=== PATIENT | female | born 1995 | race Caucasian/White ===

== ENCOUNTER 2017-07-28 11:07 | Observation (INO) ==
--- NOTE | 2017-07-28 11:23 | Emergency Department Note ---
Disposition Clinical Impression: Tremulousness, Lethargic Headache Qualifiers: Headache type: unspecified Headache chronicity pattern: acute headache Intractability: not intractable Qualified Code(s): R51 - Headache Disposition: Admitted As Inpatient Condition: Good Referrals: Nery Floyd MD [Primary Care Provider] - Forms: ED Satisfaction Letter Time of Disposition: 16:50 Seizure HPI - General Chief Complaint: ED Seizure Stated Complaint: seizure Source: patient, family, EMS Mode of arrival: EMS Limitations: no limitations, other (developmental disability) Nursing Notes Reviewed: Yes Vital Signs Reviewed: Yes - History of Present Illness HPI Narrative: This is a 21 year-old female with history of developmental disability, childhood epilepsy ("benign occipital epilepsy") who presents with possible seizures. History is provided mainly by her mother. Patient has been having episodes of eyes "fluttering" and occasional bilateral arm "twitching" since Thursday night. Episodes last a few minutes at a time, and there have been about 6 episodes since onset. There is no LOC, but patient has been unusually sleepy. She slept most of the day yesterday. She complains of a diffuse headache. Mom says that patient has frequent headaches. Mom thinks that patient may be having seizures again. Last known seizure was about 10 years ago. No recent head trauma. No measured fevers. Patient had her Zoloft dose increased 4 days ago. Pt Subjective Complaint: possible seizure Onset (ago): day(s) (2) Description of Episode: other (eyes "flickering") -: minutes(s) (few) Witnessed: yes - by other (family) Associated trauma secondary to event: No Seizure History: known seizure disorder (remote) Place: home Associated symptoms: Reports: weakness (generalized) Pain Severity: moderate - Related Data Allergies Allergy/AdvReac Type Severity Reaction Status Date / Time Penicillins Allergy Rash Verified 07/28/17 12:48 Limitations: ROS unobtainable due to patients medical condition (history of developmental disability, lethargy) Neurological: Reports: headache Past Medical History - Past Medical History Medical history: Reports: seizures Psychiatric history: Reports: no psych history - Social History Smoking Status: Former smoker Smokeless Tobacco Status: No Alcohol use: Reports: none Drug use: Reports: none Physical Exam - General Limitations: no limitations General appearance: lethargic - Head Head exam: atraumatic, normocephalic - Eye Eye exam: Present: normal appearance, PERRL, EOMI. Absent: nystagmus - ENT ENT exam: normal exam, mucous membranes moist - Neck Neck exam: Present: normal inspection. Absent: meningismus - Respiratory Respiratory exam: Present: normal lung sounds bilaterally. Absent: wheezes - Cardiovascular Cardiovascular exam: Present: regular rate, normal rhythm, normal heart sounds - Abdominal Exam Abdominal exam: Present: soft, Non-Tender. Absent: distention - Extremities Exam Extremities exam: Present: normal inspection. Absent: calf tenderness - Neurological Exam Neurological exam: Present: alert, oriented X3, CN II-XII intact. Absent: motor sensory deficit - Psychiatric Psychiatric exam: Present: flat affect - Skin Skin exam: Present: warm, dry, intact Course - Reevaluation(s) Reevaluation #1: Updated patient's family on test results. Patient resting comfortably. Occasional "twitching" movements of the hands. Time: 16:30 - Consultations Consultation #1: Paged Neuro. Time: 16:25 Consultation #2: Reviewed case with Dr. Randall. He suggests we admit patient for obs. Give IVF, repeat UA, get EEG in the AM. Time: 16:48 Consultation #3: Reviewed case with Dr. Matias, and patient accepted for admit. Time: 17:10 Vital Signs Temperature 99.2 F 07/28/17 11:08 Pulse Rate 76 07/28/17 11:08 Respiratory Rate 16 07/28/17 11:08 Blood Pressure 132/96 07/28/17 11:08 O2 Sat by Pulse Oximetry 97 07/28/17 11:08 Temperature 99.2 F 07/28/17 11:08 Pulse Rate 65 07/28/17 16:25 Respiratory Rate 16 07/28/17 16:25 Blood Pressure 120/84 07/28/17 16:25 O2 Sat by Pulse Oximetry 98 07/28/17 16:25 Oxygen Delivery Oxygen Delivery Room Air Seizure - Lab Data Result diagrams: 07/28/17 12:03 07/28/17 12:03 Lab Results 07/28/17 07/28/17 07/28/17 Range/Units 12:03 12:03 12:03 WBC 12.1 H (4.3-11.1) K/mcL RBC 4.80 (3.82-4.97) M/mcL Hgb 13.0 (11.5-15.4) g/dL Hct 40.5 (35.3-44.9) % MCV 84.4 (83.0-100.0) fL MCH 27.1 L (28.0-33.3) pg MCHC 32.1 (31.6-35.5) g/dL RDW 15.0 H (11.5-14.5) % Plt Count 412 H (140-400) K/mcL MPV 10.7 (9.4-12.4) fL Immature Gran % 0.3 (0-4) % Seg Neutrophils % 72.6 % Lymphocytes % 22.3 % Monocytes % 3.7 % Eosinophils % 0.7 % Basophils % 0.4 % Neutrophils # 8.8 (1.6-8.9) K/mcL Lymphocytes # 2.7 (0.6-4.6) K/mcL Monocytes # 0.5 (0.0-1.3) K/mcL Eosinophils # 0.1 (0.0-0.6) K/mcL Basophils # 0.1 (0.0-0.2) K/mcL Sodium 138 (136-145) mEq/L Potassium 3.8 (3.5-5.1) mEq/L Chloride 105 (98-107) mEq/L Carbon Dioxide 25 (23-29) mEq/L BUN 13 (6-20) mg/dL Creatinine 0.83 (0.60-1.20) mg/dL Est GFR ( Amer) > 60 Est GFR (Non-Af Amer) > 60 BUN/Creatinine Ratio 16 (6-26) Glucose 84 (70-105) mg/dL Calculated Osmolality 285 (280-300) Calcium 9.4 (8.6-10.3) mg/dL Phosphorus 3.1 (2.7-4.5) mg/dL Magnesium 2.0 (1.6-2.6) mg/dL Total Bilirubin 0.3 (0.3-1.0) mg/dL AST 15 (13-39) Units/L ALT 11 (7-52) Units/L Alkaline Phosphatase 84 (34-104) Units/L Serum Total Protein 7.9 (6.4-8.9) g/dL Albumin 4.3 (3.5-5.7) g/dL Globulin 3.6 H (2.4-3.5) g/dL Albumin/Globulin Ratio 1.2 (1.1-2.2) Serum , Qual Negative (Negative) Urine Color (Yellow) Urine Clarity (Clear) Urine pH (5.0-8.0) pH Units Ur Specific [place] (1.010-1.025) Urine Protein (Neg-Trace) mg/dL Urine Glucose (UA) (Normal) mg/dL Urine Ketones (Negative) mg/dL Urine Blood (Negative) Urine Nitrite (Negative) Urine Bilirubin (Negative) Urine Urobilinogen (Normal) mg/dL Ur Leukocyte Esterase (Negative) Urine Microscopic RBC (0-3) per hpf Urine Microscopic WBC (0-3) per hpf Ur Squamous Epith Cells (None-Few) per lpf Urine Bacteria (None-Few) per hpf Hyaline Casts (None-Few) per lpf CSF Volume mL CSF Appearance (Clear) CSF Color (Colorless) CSF RBC (0.000 - 0.002) M/mcL CSF Tot Nucleated Cells (0-5) TNC/mcL CSF Seg Neutrophils CSF Band Neutrophils % CSF Lymphocytes % CSF Monocytes % CSF Eosinophils % CSF Basophils % CSF Other Cells % CSF Glucose (40-70) mg/dL CSF Xanth Comm (Not Observe) CSF Total Protein (15-45) mg/dL Urine Opiates Screen (Jdfytd=327) ng/mL Ur Barbiturates Screen (Ovtvve=817) ng/mL Ur Phencyclidine Scrn (Cutoff=25) ng/mL Ur Amphetamines Screen (Eldkkq=2241) ng/mL U Benzodiazepines Scrn (Vrydvz=440) ng/mL Urine Cocaine Screen (Cutoff= 300) ng/mL U Marijuana (THC) Screen (Cutoff = 50) ng/mL 07/28/17 07/28/17 07/28/17 Range/Units 13:42 13:42 15:00 WBC (4.3-11.1) K/mcL RBC (3.82-4.97) M/mcL Hgb (11.5-15.4) g/dL Hct (35.3-44.9) % MCV (83.0-100.0) fL MCH (28.0-33.3) pg MCHC (31.6-35.5) g/dL RDW (11.5-14.5) % Plt Count (140-400) K/mcL MPV (9.4-12.4) fL Immature Gran % (0-4) % Seg Neutrophils % % Lymphocytes % % Monocytes % % Eosinophils % % Basophils % % Neutrophils # (1.6-8.9) K/mcL Lymphocytes # (0.6-4.6) K/mcL Monocytes # (0.0-1.3) K/mcL Eosinophils # (0.0-0.6) K/mcL Basophils # (0.0-0.2) K/mcL Sodium (136-145) mEq/L Potassium (3.5-5.1) mEq/L Chloride (98-107) mEq/L Carbon Dioxide (23-29) mEq/L BUN (6-20) mg/dL Creatinine (0.60-1.20) mg/dL Est GFR ( Amer) Est GFR (Non-Af Amer) BUN/Creatinine Ratio (6-26) Glucose (70-105) mg/dL Calculated Osmolality (280-300) Calcium (8.6-10.3) mg/dL Phosphorus (2.7-4.5) mg/dL Magnesium (1.6-2.6) mg/dL Total Bilirubin (0.3-1.0) mg/dL AST (13-39) Units/L ALT (7-52) Units/L Alkaline Phosphatase (34-104) Units/L Serum Total Protein (6.4-8.9) g/dL Albumin (3.5-5.7) g/dL Globulin (2.4-3.5) g/dL Albumin/Globulin Ratio (1.1-2.2) Serum , Qual (Negative) Urine Color Yellow (Yellow) Urine Clarity Cloudy A (Clear) Urine pH 5.5 (5.0-8.0) pH Units Ur Specific [place] 1.027 H (1.010-1.025) Urine Protein Negative (Neg-Trace) mg/dL Urine Glucose (UA) Normal (Normal) mg/dL Urine Ketones Negative (Negative) mg/dL Urine Blood Negative (Negative) Urine Nitrite Negative (Negative) Urine Bilirubin Negative (Negative) Urine Urobilinogen Normal (Normal) mg/dL Ur Leukocyte Esterase Trace H (Negative) Urine Microscopic RBC 3-5 H (0-3) per hpf Urine Microscopic WBC 5-15 H (0-3) per hpf Ur Squamous Epith Cells Many H (None-Few) per lpf Urine Bacteria Few (None-Few) per hpf Hyaline Casts None Seen (None-Few) per lpf CSF Volume 3.5 mL CSF Appearance Clear (Clear) CSF Color Colorless (Colorless) CSF RBC < 0.002 (0.000 - 0.002) M/mcL CSF Tot Nucleated Cells < 3 (0-5) TNC/mcL CSF Seg Neutrophils Test Not Performed CSF Band Neutrophils % Test Not Performed CSF Lymphocytes % Test Not Performed CSF Monocytes % Test Not Performed CSF Eosinophils % Test Not Performed CSF Basophils % Test Not Performed CSF Other Cells % Test Not Performed CSF Glucose 61 (40-70) mg/dL CSF Xanth Comm Not Observed (Not Observe) CSF Total Protein 27 (15-45) mg/dL Urine Opiates Screen Negative (Cbrdif=318) ng/mL Ur Barbiturates Screen Negative (Wpmecy=893) ng/mL Ur Phencyclidine Scrn Negative (Cutoff=25) ng/mL Ur Amphetamines Screen Negative (Ufaazr=2569) ng/mL U Benzodiazepines Scrn Negative (Ggecwp=019) ng/mL Urine Cocaine Screen Negative (Cutoff= 300) ng/mL U Marijuana (THC) Screen Negative (Cutoff = 50) ng/mL - Radiology Data Radiology results reviewed: Yes I reviewed the patient's radiology results. CT/CT head/brain wo con IMPRESSION: No acute intracranial abnormality. - EKG Data EKG attestation: Yes I reviewed and interpreted this EKG. EKG shows normal: sinus rhythm, axis, intervals, QRS complexes, ST-T waves Interpretation: normal EKG
[2017-07-28] MEDS ORDERED: *HR* LORazepam 2 MG/ML VIAL IVP ONE (12:43)
[2017-07-28 13:16] LABS: Basophils # 0.1 K/mcL (0.0-0.2); Basophils % 0.4 %; Eosinophils # 0.1 K/mcL (0.0-0.6); Eosinophils % 0.7 %; Hematocrit 40.5 % (35.3-44.9); Immature Granulocytes % 0.3 % (0-4); Lymphocytes # 2.7 K/mcL (0.6-4.6); Lymphocytes % 22.3 %; Mean Corpuscular HGB Conc 32.1 g/dL (31.6-35.5); Mean Corpuscular Hemoglobin 27.1 pg (28.0-33.3); Mean Corpuscular Volume 84.4 fL (83.0-100.0); Mean Platelet Volume 10.7 fL (9.4-12.4); Monocytes # 0.5 K/mcL (0.0-1.3); Monocytes % 3.7 %; Neutrophils # 8.8 K/mcL (1.6-8.9); Platelet Count 412 K/mcL (140-400); Segmented Neutrophils % 72.6 %
[2017-07-28 13:39] LABS: Alanine Aminotransferase 11 Units/L (7-52); Albumin 4.3 g/dL (3.5-5.7); Albumin/Globulin Ratio 1.2 (1.1-2.2); Alkaline Phosphatase 84 Units/L (34-104); Aspartate Amino Transferase 15 Units/L (13-39); BUN/Creatinine Ratio 16 (6-26); Bilirubin,Total 0.3 mg/dL (0.3-1.0); Blood Urea Nitrogen 13 mg/dL (6-20); Calcium 9.4 mg/dL (8.6-10.3); Carbon Dioxide 25 mEq/L (23-29); Chloride 105 mEq/L (98-107); Globulin 3.6 g/dL (2.4-3.5); Glucose 84 mg/dL (70-105); Osmolality,Calculated 285 (280-300); Phosphorous 3.1 mg/dL (2.7-4.5); Potassium 3.8 mEq/L (3.5-5.1); Sodium 138 mEq/L (136-145); Total Protein 7.9 g/dL (6.4-8.9); eGFR For African Americans > 60; eGFR For Non-African Americans > 60
[2017-07-28] MEDS ORDERED: cefTRIAXone 2,000 MG in 0.9 % Sodium Chloride Mini Bag 100 ML IVPB ONE (13:59)
[2017-07-28] MEDS ORDERED: *HR* FentaNYL (PF) 100 MCG/2 ML VIAL IVP ONE (14:11)
[2017-07-28 14:12] LABS: Bilirubin,Urine Negative (Negative); Blood,Urine Negative (Negative); Clarity,Urine Cloudy (Clear); Color,Urine Yellow (Yellow); Glucose,Urine (UA) Normal (Normal); Ketones,Urine Negative (Negative); Leukocyte Esterase,Urine Trace (Negative); Nitrite,Urine Negative (Negative); PH,Urine 5.5 pH Units (5.0-8.0); Protein,Urine Negative (Neg-Trace); Specific Gravity,Urine 1.027 (1.010-1.025); Urobilinogen,Urine Normal (Normal)
[2017-07-28 14:16] LABS: Bacteria,Urine Few per hpf (None-Few); Hyaline Casts,Urine None Seen per lpf (None-Few); Squamous Epithelial Cell,Urine Many per lpf (None-Few)
[2017-07-28] MEDS ORDERED: Lidocaine 1% 20 ML MDV INFILT ONE (14:30)
[2017-07-28 14:32] LABS: Amphetamine Screen,Urine Negative ng/mL (Cutoff=1000); Barbiturate Screen,Urine Negative ng/mL (Cutoff=200); Benzodiazepines Screen,Urine Negative ng/mL (Cutoff=200); Cannabinoid Screen,Urine Negative ng/mL (Cutoff = 50); Cocaine Screen,Urine Negative ng/mL (Cutoff= 300); Opiate Screen,Urine Negative ng/mL (Cutoff=300); Phencyclidine Screen,Urine Negative ng/mL (Cutoff=25)
[2017-07-28 15:52] LABS: Red Blood Cell,CSF < 0.002 M/mcL
[2017-07-28 15:54] LABS: Appearance,CSF Clear (Clear)
--- NOTE | 2017-07-28 16:03 | Emergency Department Note ---
Disposition Clinical Impression: Generalized seizure Headache Qualifiers: Headache type: unspecified Headache chronicity pattern: acute headache Intractability: not intractable Qualified Code(s): R51 - Headache Disposition: Still a Patient Condition: Undetermined Referrals: Nery Floyd MD [Primary Care Provider] - Forms: ED Satisfaction Letter Time of Disposition: 16:04 Seizure HPI - General Chief Complaint: ED Seizure Stated Complaint: seizure Time Seen by Provider: 07/28/17 15:09 Source: patient, family, EMS Mode of arrival: EMS Limitations: no limitations Nursing Notes Reviewed: Yes Vital Signs Reviewed: Yes - History of Present Illness Associated trauma secondary to event: No Seizure History: known seizure disorder (remote) Place: home Associated symptoms: Reports: weakness (generalized) - Related Data Allergies Allergy/AdvReac Type Severity Reaction Status Date / Time Penicillins Allergy Rash Verified 07/28/17 12:48 Neurological: Reports: headache Past Medical History - Past Medical History Medical history: Reports: seizures Psychiatric history: Reports: no psych history - Social History Smoking Status: Former smoker Smokeless Tobacco Status: No Alcohol use: Reports: none Drug use: Reports: none Physical Exam - General Limitations: no limitations General appearance: lethargic Course Vital Signs Temperature 99.2 F 07/28/17 11:08 Pulse Rate 76 07/28/17 11:08 Respiratory Rate 16 07/28/17 11:08 Blood Pressure 132/96 07/28/17 11:08 O2 Sat by Pulse Oximetry 97 07/28/17 11:08 Temperature 99.2 F 07/28/17 11:08 Pulse Rate 72 07/28/17 15:14 Respiratory Rate 16 07/28/17 15:14 Blood Pressure 125/81 07/28/17 15:14 O2 Sat by Pulse Oximetry 95 07/28/17 15:14 Oxygen Delivery Oxygen Delivery Room Air Procedures - Lumbar Puncture Consent Obtained: written consent Time Out Performed: Yes Patient Position: right lateral decubitus Skin Prep: Povidone-Iodine 1% Local Anesthetic: lidocaine 1% Amount of anesthesia used (mL): 10 Spinal Needle Gauge: 20G Interspace Used: L3-L4 Opening Pressure (cmH20): 4 Fluid Initially Obtained: bloody Complications: none Seizure - Lab Data Result diagrams: 07/28/17 12:03 07/28/17 12:03 Lab Results 07/28/17 07/28/17 07/28/17 Range/Units 12:03 12:03 12:03 WBC 12.1 H (4.3-11.1) K/mcL RBC 4.80 (3.82-4.97) M/mcL Hgb 13.0 (11.5-15.4) g/dL Hct 40.5 (35.3-44.9) % MCV 84.4 (83.0-100.0) fL MCH 27.1 L (28.0-33.3) pg MCHC 32.1 (31.6-35.5) g/dL RDW 15.0 H (11.5-14.5) % Plt Count 412 H (140-400) K/mcL MPV 10.7 (9.4-12.4) fL Immature Gran % 0.3 (0-4) % Seg Neutrophils % 72.6 % Lymphocytes % 22.3 % Monocytes % 3.7 % Eosinophils % 0.7 % Basophils % 0.4 % Neutrophils # 8.8 (1.6-8.9) K/mcL Lymphocytes # 2.7 (0.6-4.6) K/mcL Monocytes # 0.5 (0.0-1.3) K/mcL Eosinophils # 0.1 (0.0-0.6) K/mcL Basophils # 0.1 (0.0-0.2) K/mcL Sodium 138 (136-145) mEq/L Potassium 3.8 (3.5-5.1) mEq/L Chloride 105 (98-107) mEq/L Carbon Dioxide 25 (23-29) mEq/L BUN 13 (6-20) mg/dL Creatinine 0.83 (0.60-1.20) mg/dL Est GFR ( Amer) > 60 Est GFR (Non-Af Amer) > 60 BUN/Creatinine Ratio 16 (6-26) Glucose 84 (70-105) mg/dL Calculated Osmolality 285 (280-300) Calcium 9.4 (8.6-10.3) mg/dL Phosphorus 3.1 (2.7-4.5) mg/dL Magnesium 2.0 (1.6-2.6) mg/dL Total Bilirubin 0.3 (0.3-1.0) mg/dL AST 15 (13-39) Units/L ALT 11 (7-52) Units/L Alkaline Phosphatase 84 (34-104) Units/L Serum Total Protein 7.9 (6.4-8.9) g/dL Albumin 4.3 (3.5-5.7) g/dL Globulin 3.6 H (2.4-3.5) g/dL Albumin/Globulin Ratio 1.2 (1.1-2.2) Serum , Qual Negative (Negative) Urine Color (Yellow) Urine Clarity (Clear) Urine pH (5.0-8.0) pH Units Ur Specific [place] (1.010-1.025) Urine Protein (Neg-Trace) mg/dL Urine Glucose (UA) (Normal) mg/dL Urine Ketones (Negative) mg/dL Urine Blood (Negative) Urine Nitrite (Negative) Urine Bilirubin (Negative) Urine Urobilinogen (Normal) mg/dL Ur Leukocyte Esterase (Negative) Urine Microscopic RBC (0-3) per hpf Urine Microscopic WBC (0-3) per hpf Ur Squamous Epith Cells (None-Few) per lpf Urine Bacteria (None-Few) per hpf Hyaline Casts (None-Few) per lpf CSF Volume mL CSF Appearance (Clear) CSF Color (Colorless) CSF RBC (0.000 - 0.002) M/mcL CSF Tot Nucleated Cells (0-5) TNC/mcL CSF Seg Neutrophils CSF Band Neutrophils % CSF Lymphocytes % CSF Monocytes % CSF Eosinophils % CSF Basophils % CSF Other Cells % Urine Opiates Screen (Wzznis=697) ng/mL Ur Barbiturates Screen (Xebbdc=792) ng/mL Ur Phencyclidine Scrn (Cutoff=25) ng/mL Ur Amphetamines Screen (Ulftqa=2907) ng/mL U Benzodiazepines Scrn (Cxtkqx=450) ng/mL Urine Cocaine Screen (Cutoff= 300) ng/mL U Marijuana (THC) Screen (Cutoff = 50) ng/mL 07/28/17 07/28/17 07/28/17 Range/Units 13:42 13:42 15:00 WBC (4.3-11.1) K/mcL RBC (3.82-4.97) M/mcL Hgb (11.5-15.4) g/dL Hct (35.3-44.9) % MCV (83.0-100.0) fL MCH (28.0-33.3) pg MCHC (31.6-35.5) g/dL RDW (11.5-14.5) % Plt Count (140-400) K/mcL MPV (9.4-12.4) fL Immature Gran % (0-4) % Seg Neutrophils % % Lymphocytes % % Monocytes % % Eosinophils % % Basophils % % Neutrophils # (1.6-8.9) K/mcL Lymphocytes # (0.6-4.6) K/mcL Monocytes # (0.0-1.3) K/mcL Eosinophils # (0.0-0.6) K/mcL Basophils # (0.0-0.2) K/mcL Sodium (136-145) mEq/L Potassium (3.5-5.1) mEq/L Chloride (98-107) mEq/L Carbon Dioxide (23-29) mEq/L BUN (6-20) mg/dL Creatinine (0.60-1.20) mg/dL Est GFR ( Amer) Est GFR (Non-Af Amer) BUN/Creatinine Ratio (6-26) Glucose (70-105) mg/dL Calculated Osmolality (280-300) Calcium (8.6-10.3) mg/dL Phosphorus (2.7-4.5) mg/dL Magnesium (1.6-2.6) mg/dL Total Bilirubin (0.3-1.0) mg/dL AST (13-39) Units/L ALT (7-52) Units/L Alkaline Phosphatase (34-104) Units/L Serum Total Protein (6.4-8.9) g/dL Albumin (3.5-5.7) g/dL Globulin (2.4-3.5) g/dL Albumin/Globulin Ratio (1.1-2.2) Serum , Qual (Negative) Urine Color Yellow (Yellow) Urine Clarity Cloudy A (Clear) Urine pH 5.5 (5.0-8.0) pH Units Ur Specific [place] 1.027 H (1.010-1.025) Urine Protein Negative (Neg-Trace) mg/dL Urine Glucose (UA) Normal (Normal) mg/dL Urine Ketones Negative (Negative) mg/dL Urine Blood Negative (Negative) Urine Nitrite Negative (Negative) Urine Bilirubin Negative (Negative) Urine Urobilinogen Normal (Normal) mg/dL Ur Leukocyte Esterase Trace H (Negative) Urine Microscopic RBC 3-5 H (0-3) per hpf Urine Microscopic WBC 5-15 H (0-3) per hpf Ur Squamous Epith Cells Many H (None-Few) per lpf Urine Bacteria Few (None-Few) per hpf Hyaline Casts None Seen (None-Few) per lpf CSF Volume 3.5 mL CSF Appearance Clear (Clear) CSF Color Colorless (Colorless) CSF RBC < 0.002 (0.000 - 0.002) M/mcL CSF Tot Nucleated Cells < 3 (0-5) TNC/mcL CSF Seg Neutrophils Test Not Performed CSF Band Neutrophils % Test Not Performed CSF Lymphocytes % Test Not Performed CSF Monocytes % Test Not Performed CSF Eosinophils % Test Not Performed CSF Basophils % Test Not Performed CSF Other Cells % Test Not Performed Urine Opiates Screen Negative (Nmtlqs=642) ng/mL Ur Barbiturates Screen Negative (Hocwps=206) ng/mL Ur Phencyclidine Scrn Negative (Cutoff=25) ng/mL Ur Amphetamines Screen Negative (Lkallf=9780) ng/mL U Benzodiazepines Scrn Negative (Nqlalk=860) ng/mL Urine Cocaine Screen Negative (Cutoff= 300) ng/mL U Marijuana (THC) Screen Negative (Cutoff = 50) ng/mL
[2017-07-28 16:23] LABS: Glucose,CSF 61 mg/dL (40-70); Total Protein,CSF 27 mg/dL (15-45)
[2017-07-28] MEDS ORDERED: 0.9 % Sodium Chloride 1,000 ML IVC ONE (16:30)
[2017-07-28] MEDS ORDERED: *HR* LORazepam 0.5 MG TABLET PO PRN (19:35)
[2017-07-28] MEDS ORDERED: traMADol 50 MG TABLET PO PRN (19:37)
[2017-07-28] MEDS ORDERED: Naloxone 0.4 MG/ML INJ IVP PRN (19:37)
[2017-07-28] MEDS ORDERED: 0.9 % Sodium Chloride 1,000 ML IVC SCH (19:45)
--- NOTE | 2017-07-28 19:46 | Internal Med History&Physical ---
Date of Encounter: 07/28/17 Time of Encounter: 19:41 Internal Medicine - H&P: HPI Chief complaint: Seizures Admitted From: Emergency Dept History of present illness: Ms. Reza is a 21 year old female with a past medical history of seizure disorder during her childhood more than 10 years ago, not on any seizure medication, also history of developmental disability, recently her dose of Zoloft which was prescribed for her mood disorder was increased from 100 mg daily to 200 mg daily 4 days ago. Since Thursday, her mother has noticed her eyes fluttering, both arms twitching, these episodes last for about 30 seconds or less, after does episodes the patient becomes very sleepy but never lost consciousness. She did not develop and headaches on and off. Lumbar puncture performed at the emergency room shows 3 nuclear cells glucose of 61 and protein of 27/oh normal. The patient is high functioning, denies any dysuria or chest pain, UA shows 15 white blood cells but many squamous cells. Neurology was called and will recommend possibly in the morning and EEG. Past Med Surg Social Fam HX - Past Medical History Medical history: seizures, other (Benign occipital epilepsy in childhood more than 10 years ago, developmental disability MRDD high functioning, mood disorder on Zoloft) Psychiatric history: other (Mood disorder) - Past Surgical History Surgical History: no surgical history - Social History Smoking Status: Never smoker Smokeless Tobacco Status: No Alcohol use: none Drug use: none - Family History Mother Adopted: Yes - Additional Family History Additional family history: The patient was adopted Internal Medicine - H&P: Meds Sertraline [Zoloft] 200 mg PO HS 07/28/17 [History] 3 Allergy/AdvReac Type Severity Reaction Status Date / Time Penicillins Allergy Rash Verified 07/28/17 12:48 All Systems PM: A 10-system review of systems was performed and is negative for pertinent findings except as documented above in the HPI. Review of systems: No chest pressures or breath, other systems out of the 10 reviewed were negative - Constitutional Vitals: Temp Pulse Resp BP Pulse Ox 99.1 F 64 15 111/76 100 07/28/17 18:54 07/28/17 18:54 07/28/17 18:54 07/28/17 18:54 07/28/17 18:54 General appearance: Present: A&O X 3, obese - Head Head exam: Present: atraumatic, normocephalic - Eye Eye exam: Present: PERRL, conjuntiva pink, sclera anicteric Pupils: Present: PERRL - Neck Neck exam general surgery: Present: supple, trachea midline. Absent: lymphadenopathy - Respiratory Respiratory exam: Present: CTAB. Absent: accessory muscle use, rales, rhonchi, wheezes - Cardiovascular Cardiovascular exam: Present: RRR, +S1, +S2. Absent: diastolic murmur, gallop, rubs, systolic murmur - GI/Abdominal GI/Abdominal exam: Present: normal bowel sounds, soft, no peritoneal signs. Absent: distended, tenderness - Extremities Exam Extremities exam: Present: warm, radial pulses palpable and symmetrical. Absent : calf tenderness, cyanotic, pedal edema - Neurological Exam Neurological exam: Present: CN II-XII intact, oriented X3, no focal deficits. Absent: pronater drift, facial droop, speech deficit - Skin Skin exam: Present: dry, intact Internal Med - H&P Results - Labs CBC & Chem 7: 07/28/17 12:03 07/28/17 12:03 - Assessment and plan (1) Seizure-like activity Current Visit: Yes Status: Acute Assessment and plan: Unclear etiology, since her dose of Zoloft was increased to 200 mg, the patient has become more somnolent. Zoloft is associated with seizures in less than 2% of the people treated. Neurology consulted by the ER Neuro checks, seizure and aspiration precautions Ativan as needed Hold Zoloft Received Rocephin and vancomycin in the ER which will not be continued Omeprazole for GI prophylaxis and subcutaneous tenderness heparin for DVT prophylaxis. The patient will be admitted for observation. Full code. Time spent on this admission 40 minutes. (2) Developmental disability Current Visit: Yes Status: Acute (3) Mood disorder Current Visit: Yes Status: Acute (4) Thrombocytosis Current Visit: Yes Status: Acute Assessment and plan: Nonspecific (5) Leukocytosis Current Visit: Yes Status: Acute Assessment and plan: Nonspecific Qualifiers: Leukocytosis type: unspecified Qualified Code(s): D72.829 - Elevated white blood cell count, unspecified - Time Spent With Patient Total time spent is greater than 50% in coordination of care (as documented) at patient's floor/unit and/or counseling patient:
[2017-07-29 04:52] LABS: Hematocrit 34.6 % (35.3-44.9); Mean Corpuscular HGB Conc 31.2 g/dL (31.6-35.5); Mean Corpuscular Hemoglobin 25.9 pg (28.0-33.3); Mean Platelet Volume 10.8 fL (9.4-12.4); Platelet Count 341 K/mcL (140-400); Red Blood Count 4.17 M/mcL (3.82-4.97); Red Cell Distribution Width 15.1 % (11.5-14.5)
[2017-07-29 04:54] LABS: Hemoglobin 10.8 g/dL (11.5-15.4)
[2017-07-29 05:08] LABS: BUN/Creatinine Ratio 16 (6-26); Blood Urea Nitrogen 12 mg/dL (6-20); Calcium 8.7 mg/dL (8.6-10.3); Carbon Dioxide 22 mEq/L (23-29); Chloride 109 mEq/L (98-107); Glucose 113 mg/dL (70-105); Osmolality,Calculated 289 (280-300); Potassium 3.5 mEq/L (3.5-5.1); Sodium 139 mEq/L (136-145); eGFR For African Americans > 60; eGFR For Non-African Americans > 60
[2017-07-29] MEDS: *HR* Heparin 5,000 UNIT/ML VIAL SQ SCH ×2 (06:05→17:29)
[2017-07-29] MEDS ORDERED: *HR* LORazepam 2 MG/ML VIAL IVP ONE (08:46)
[2017-07-29] MEDS ORDERED: *HR* LORazepam 2 MG/ML VIAL ONE (08:47)
--- NOTE | 2017-07-29 09:34 | Neurology - Consult Note ---
<JamisonEvelinaVadim - Last Filed: 07/29/17 09:31> Date of Encounter: 07/29/17 Time of Encounter: 08:15 Assessment and Plan (1) Seizure-like activity Current Visit: Yes Status: Acute Patient with history of childhood seizure activity, who has not been on anti- epileptics. Possibly medication-related, as she takes a recently increased dose of Zoloft, or simply behavioral. Continue holding Zoloft. Further evaluation with the EEG and MRI is recommended, especially with history of worsening headaches. Recommend Topamax 50 mg PO BID for headache prophylaxis. Will follow the patient with you and give further recommendations pending completed testing. 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 Episodes, of which there have been about 6 , appear as fluttering of the eyes and bilateral arm twitching. There is a loss of consciousness associated with them, and the patient has been somnolent since the episode started. The patient reports that it is been about 10 years since her last seizure and that she has never been on medication. Patient does report frequent headaches. She denies weakness or numbness. CT of the head was negative. Past Med Surg Social Fam HX - Past Medical History Medical history: seizures, other (Benign occipital epilepsy in childhood more than 10 years ago, developmental disability MRDD high functioning, mood disorder on Zoloft) Additional medical history: high functioning MRDD Psychiatric history: other (Mood disorder) - Past Surgical History Surgical History: no surgical history - Social History Smoking Status: Never smoker Smokeless Tobacco Status: No Alcohol use: none Drug use: none - Family History Mother Adopted: Yes Medications and Allergies Sertraline [Zoloft] 200 mg PO HS 07/28/17 [History] 3 Allergy/AdvReac Type Severity Reaction Status Date / Time Penicillins Allergy Rash Verified 07/28/17 12:48 All Systems: The remainder of the systems were reviewed and are negative Review of Systems: A 10-point review of systems was completed and was negative except as noted in the HPI. Physical Examination - Vital Signs Vital Signs: Initial Vital Signs Temp Pulse Resp BP Pulse Ox 99.2 F 76 16 132/96 97 07/28/17 11:08 05/29/18 11:08 07/28/17 11:08 07/28/17 11:08 07/28/17 11:08 - Exam Exam: CONSTITUTIONAL: Well-developed and well-nourished. Comfortable and in no acute distress. CARDIOVASCULAR: Regular rate and rhythm. +S1 and S2. CHEST: Normal work of breathing. NEURO: Mental Status: Alert and oriented x3. Follows commands and answers questions. Cranial Nerves: PERRL. EOMI. Visual isaac intact. Symmetrical facial strength. Facial sensation intact. No dysarthria. Hearing intact. Soft palate elevates symmetrically. SCM and trapezius without weakness. Tongue protrudes in midline. Motor: Left - 5/5 in upper and lower extremities. Right - 5/5 in upper and lower extremities. Sensation intact. Cerebellar function intact to [id number]. Results - Laboratory Findings CBC and BMP: 07/29/17 08:29 07/29/17 04:30 Abnormal lab findings: Abnormal lab results Hct 34.6 % (35.3-44.9) L 07/29/17 04:30 MCH 25.9 pg (28.0-33.3) L 07/29/17 04:30 MCHC 31.2 g/dL (31.6-35.5) L 07/29/17 04:30 RDW 15.1 % (11.5-14.5) H 07/29/17 04:30 Chloride 109 mEq/L (98-107) H 07/29/17 04:30 Carbon Dioxide 22 mEq/L (23-29) L 07/29/17 04:30 Glucose 113 mg/dL (70-105) H 07/29/17 04:30 Globulin 3.6 g/dL (2.4-3.5) H 07/28/17 12:03 Urine Clarity Cloudy (Clear) A 07/28/17 13:42 Ur Specific [place] 1.027 (1.010-1.025) H 07/28/17 13:42 Ur Leukocyte Esterase Trace (Negative) H 07/28/17 13:42 Urine Microscopic RBC 3-5 per hpf (0-3) H 07/28/17 13:42 Urine Microscopic WBC 5-15 per hpf (0-3) H 07/28/17 13:42 Ur Squamous Epith Cells Many per lpf (None-Few) H 07/28/17 13:42 - Diagnostic Findings Additional findings: Head CT 07/28/17 12:30 IMPRESSION: No acute intracranial abnormality. D/ / Julián Calderon MD / Julián Calderon MD Interpreting Provider: Julián Calderon MD Consult Discharge Plan - Plan Referrals: Nery Floyd MD [Primary Care Provider] - <Adebayo Randall I - Last Filed: 07/29/17 14:01> Date of Encounter: 07/29/17 Assessment and Plan (1) Seizure-like activity Current Visit: Yes Status: Acute Pt was seen and examined, my medical decision was reviewed with the Resident Physician, I agree with the documented findings, disposition and treatment plas as described except to the extent set forth below It is a concern that symptoms are more off seizure type of activity but there is no associated loss of consciousness one of the spell world witnessed by the floor nurse practitioner who mentioned that there is no loss of consciousness when her eyes were twitching up in the head. With her history of for seizures but no seizures for more than 10 years and without any obvious provoking factors seems to be less likely that these are epileptic as spells that that remains a possibility. Sounds more like a behavioral events than true epileptic seizures but again cannot completely exclude that possibility. We will suggest getting her long ambulatory 48 hours EEG that could be done as an outpatient after neurology office visit. As she is also complaining of some headaches quite frequent 1 suggest start on the Topamax for headache prevention. Follow-up in neurology clinic after discharge in 3-4 weeks Adebayo Randall MD History of Present Illness HPI: Ms. Reza is a 21 year old female All Systems: The remainder of the systems were reviewed and are negative Physical Examination - Vital Signs Vital Signs: Initial Vital Signs Temp Pulse Resp BP Pulse Ox 99.2 F 76 16 132/96 97 07/28/17 11:08 07/28/17 11:08 07/28/17 11:08 07/28/17 11:08 07/28/17 11:08 Results - Laboratory Findings CBC and BMP: 07/29/17 08:29 07/29/17 04:30 Abnormal lab findings: Abnormal lab results Hct 34.6 % (35.3-44.9) L 07/29/17 04:30 MCH 25.9 pg (28.0-33.3) L 07/29/17 04:30 MCHC 31.2 g/dL (31.6-35.5) L 07/29/17 04:30 RDW 15.1 % (11.5-14.5) H 07/29/17 04:30 Chloride 109 mEq/L (98-107) H 07/29/17 04:30 Carbon Dioxide 22 mEq/L (23-29) L 07/29/17 04:30 Glucose 113 mg/dL (70-105) H 07/29/17 04:30 Globulin 3.6 g/dL (2.4-3.5) H 07/28/17 12:03 Urine Clarity Cloudy (Clear) A 07/28/17 13:42 Ur Specific [place] 1.027 (1.010-1.025) H 07/28/17 13:42 Ur Leukocyte Esterase Trace (Negative) H 07/28/17 13:42 Urine Microscopic RBC 3-5 per hpf (0-3) H 07/28/17 13:42 Urine Microscopic WBC 5-15 per hpf (0-3) H 07/28/17 13:42 Ur Squamous Epith Cells Many per lpf (None-Few) H 07/28/17 13:42
--- NOTE | 2017-07-29 11:11 | Electrocardiograph Report ---
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
--- NOTE | 2017-07-29 12:19 | Discharge Summary ---
Orders not resulted at time of discharge: Pending orders 07/29/17 08:15 Occult Blood,Stool [BF] Stat Date of Encounter: 07/29/17 Time of Encounter: 12:14 - Discharge Diagnosis (1) Seizure-like activity Status: Acute Assessment and Plan: Unclear etiology, since her dose of Zoloft was increased to 200 mg, the patient has become more somnolent. Zoloft is associated with seizures in less than 2% of the people treated. Neurology consulted by the ER Neuro checks, seizure and aspiration precautions Ativan as needed Hold Zolofdain Received Rocephin and vancomycin in the ER which will not be continued Omeprazole for GI prophylaxis and subcutaneous tenderness heparin for DVT prophylaxis. The patient will be admitted for observation. Full code. Time spent on this admission 40 minutes. (2) Developmental disability Status: Acute Assessment and Plan: per hx. High functioning. Mentation at baseline. (3) Thrombocytosis Status: Acute Assessment and Plan: Nonspecific (4) Leukocytosis Status: Acute Assessment and Plan: Nonspecific Qualifiers: Leukocytosis type: unspecified Qualified Code(s): D72.829 - Elevated white blood cell count, unspecified Hospital course: Ms. Reza is a 21 year old female - Time Spent with Patient Total time spent providing and/or coordinating discharge services: - Discharge Medications Home Medications: Sertraline [Zoloft] 200 mg PO HS 07/28/17 [History] Allergies/Adverse Reactions: 3 Allergy/AdvReac Type Severity Reaction Status Date / Time Penicillins Allergy Rash Verified 07/28/17 12:48 Date of admission: 07/28/17 17:37 Primary care physician: Nery Floyd, Consults: 07/28/17 19:49 Consult to Neurology [CONS] Routine Consulting Provider: [facility] Reason for Consult: Seizure-like activity, called by the ER Call Completed: Yes Discharging clinician: Emma Hannon Anticipated date of discharge: 07/29/17 - Constitutional Vitals: Temp Pulse Resp BP Pulse Ox 98.3 F 76 14 109/74 98 07/29/17 11:20 07/29/17 11:20 07/29/17 11:20 07/29/17 11:20 07/29/17 11:20 General appearance: Present: A&O X 3, obese - Patient Status Condition: Good - Discharge Instructions Follow Up With: Nery Floyd MD [Primary Care Provider] -
[2017-07-29] MEDS ORDERED: Isovue-370 500 ML INFUS..BTL IV ONE (12:20)
--- NOTE | 2017-07-29 12:28 | Internal Med Progress Note ---
Date of Encounter: 07/29/17 Time of Encounter: 12:20 - Assessment and plan (1) Seizure-like activity Current Visit: Yes Status: Acute Assessment and plan: possible, presented with episodes of lethargy coupled with rapid eye blinking. No clonic tonic activity. History of childhood seizure activity, not on anti- epileptics. LP in ED unremarkable. Unclear etiology; Zoloft was recently increased to 200 mg. Neuro checks, seizure and aspiration precautions. Hold zoloft, ativan PRN. EEG and brain MRI pending. Discussed with neurology and will start Topamax as patient was complaining of a headache as well. Neurology following (2) Developmental disability Current Visit: Yes Status: Acute Assessment and plan: per hx. High functioning. Mentation at baseline (3) Leukocytosis Current Visit: Yes Status: Acute Assessment and plan: mild, WBC 12K. Afebrile. No indication of infection. Repeat WBC normalized. No indication for ATB at this time. Qualifiers: Leukocytosis type: unspecified Qualified Code(s): D72.829 - Elevated white blood cell count, unspecified (4) DVT prophylaxis Current Visit: Yes Status: Acute Assessment and plan: heparin - Time Spent With Patient Total time spent is greater than 50% in coordination of care (as documented) at patient's floor/unit and/or counseling patient: - Subjective Interval history: Seen and examined at bedside. Patient is new to me, information obtained from chart review and patient report. RN at bedside and reported patient had another episode of seizure-like activity. During my exam patient is lethargic and had episode of rapid eye blinking. She remained conscious and aware throughout the entire episode. She complains of a headache. - Constitutional Vitals: Temp Pulse Resp BP Pulse Ox 98.3 F 76 14 109/74 98 07/29/17 11:20 07/29/17 11:20 07/29/17 11:20 07/29/17 11:20 07/29/17 11:20 General appearance: Present: A&O X 3, obese - Head Head exam: Present: atraumatic, normocephalic - Eye Eye exam: Present: PERRL, conjuntiva pink, sclera anicteric Pupils: Present: PERRL - Neck Neck exam general surgery: Present: supple, trachea midline. Absent: lymphadenopathy - Respiratory Respiratory exam: Present: CTAB. Absent: accessory muscle use, rales, rhonchi, wheezes - Cardiovascular Cardiovascular exam: Present: RRR, +S1, +S2. Absent: diastolic murmur, gallop, rubs, systolic murmur - GI/Abdominal GI/Abdominal exam: Present: normal bowel sounds, soft, no peritoneal signs. Absent: distended, tenderness - Extremities Exam Extremities exam: Present: warm, radial pulses palpable and symmetrical. Absent : calf tenderness, cyanotic, pedal edema - Neurological Exam Neurological exam: Present: CN II-XII intact, oriented X3, no focal deficits. Absent: pronater drift, facial droop, speech deficit - Skin Skin exam: Present: dry, intact Internal Medicine: Result - Labs CBC & Chem 7: 07/29/17 08:29 07/29/17 04:30 Labs: Short CBC 07/29/17 07/29/17 Range/Units 04:30 08:29 WBC 9.5 (4.3-11.1) K/mcL Hgb 10.8 L D 11.9 (11.5-15.4) g/dL Hct 34.6 L (35.3-44.9) % Plt Count 341 (140-400) K/mcL BMP 07/29/17 04:30 Sodium 139 Potassium 3.5 Chloride 109 H Carbon Dioxide 22 L BUN 12 Creatinine 0.74 Glucose 113 H Calcium 8.7 Consult Discharge Plan - Plan Referrals: Nery Floyd MD [Primary Care Provider] -
[2017-07-29] MEDS ORDERED: Gadolinium Contrast Agent (WT Based) IV PRN (12:42)
--- NOTE | 2017-07-29 14:57 | EEG/EMG/Oth Biometrics Report ---
EEG Procedure Report Date of procedure: 07/29/17 EEG Procedure: Routine EEG Procedure Note: Routine 21-channel digital EEG performed and recorded utilizing the standard international 10-20 electrode placement system. FINDINGS: This patient has predominant waking background rhythm which is well- organized, well-developed, average voltage 8 to 10 hertz alpha activity in the posterior regions, symmetrical over the both hemispheres reactive to eye opening and closing, and it is bilaterally synchronous. No iwzsh-ubr-kgao discharges or any lateralizing abnormalities are seen. Photic stimulation and hyperventilation did not produce any convulsive response. No abnormalities were found during the procedure. Intermittent EMG artifacts were seen. Stage II sleep was not achieved. IMPRESSION: Normal awake/ drowsy electroencephalogram. No epileptiform discharges or any other paroxysmal activities or focal abnormalities seen. (Please note that normal EEG does not exclude the diagnosis of seizure or epilepsy, Clinical correlation is recommended.
[2017-07-29] MEDS ORDERED: Topiramate 25 MG TABLET PO SCH (21:00)
[2017-07-29] MEDS: Acetaminophen 325 MG TABLET PO PRN (21:17)
[2017-07-30] MEDS: *HR* Heparin 5,000 UNIT/ML VIAL SQ SCH (05:16)
[2017-07-30 07:13] VITALS: BP 112/73
--- NOTE | 2017-07-30 09:07 | Discharge Summary ---
Orders not resulted at time of discharge: Pending orders 07/29/17 08:15 Occult Blood,Stool [BF] Stat Date of Encounter: 07/30/17 Time of Encounter: 09:05 - Discharge Diagnosis (1) Seizure-like activity Priority: Primary Status: Acute Assessment and Plan: presented with episodes of lethargy coupled with rapid eye blinking. No clonic tonic activity. History of childhood seizure activity, not on anti-epileptics. LP in ED unremarkable. Zoloft was recently increased to 200 mg. Brain MRI unremarkable. EEG without evidence of epileptiform discharges or any other paroxysmal activities or focal abnormalities. 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 Start Topamax per neurology recommendations and continue holding home Zoloft. Follow up with neurology outpatient. (2) Developmental disability Priority: Primary Status: Acute Assessment and Plan: per hx. High functioning. Mentation at baseline (3) Leukocytosis Priority: Primary Status: Resolved Assessment and Plan: mild, WBC 12K. Afebrile. No hypotension or tachycardia. No indication of infection. Repeat WBC normalized. No indication for ATB Qualifiers: Leukocytosis type: unspecified Qualified Code(s): D72.829 - Elevated white blood cell count, unspecified Hospital course: Please see assessment and plan for Hospital course Discharge discussed with: patient (Seen and examined at bedside. No acute changes in exam to report. She is alert but drowsy. Says she has a headache but overall better and would like to go home today. Mother at bedside and updated as well. Discussed with neurology and okay to discharge home on Topamax with outpatient follow-up.) - Time Spent with Patient Total time spent providing and/or coordinating discharge services: - Discharge Medications Prescriptions: Topiramate [Topamax] 25 mg PO DAILY #60 tablet Home Medications: Topiramate [Topamax] 25 mg PO DAILY #60 tablet 07/30/17 [Rx] Allergies/Adverse Reactions: 3 Allergy/AdvReac Type Severity Reaction Status Date / Time Penicillins Allergy Rash Verified 07/28/17 12:48 Date of admission: 07/28/17 17:37 Primary care physician: Nery Floyd, Consults: 07/28/17 19:49 Consult to Neurology [CONS] Routine Consulting Provider: Neu[facility] Reason for Consult: Seizure-like activity, called by the ER Call Completed: Yes 07/29/17 16:02 Consult to Interpret Exam [CONS] Routine Consulting Provider: Adebayo Randall I Consult to Interpret Exam: Interpret EEG Discharging clinician: Emma Hannon Anticipated date of discharge: 07/30/17 - Constitutional Vitals: Temp Pulse Resp BP Pulse Ox 98.1 F 72 16 112/73 97 07/30/17 07:11 07/30/17 07:11 07/30/17 07:11 07/30/17 07:11 07/30/17 07:11 General appearance: Present: A&O X 3 (Drowsy), obese - Head Head exam: Present: atraumatic, normocephalic - Eye Eye exam: Present: PERRL, conjuntiva pink, sclera anicteric Pupils: Present: PERRL - Neck Neck exam general surgery: Present: supple, trachea midline. Absent: lymphadenopathy - Respiratory Respiratory exam: Present: CTAB. Absent: accessory muscle use, rales, rhonchi, wheezes - Cardiovascular Cardiovascular exam: Present: RRR, +S1, +S2. Absent: diastolic murmur, gallop, rubs, systolic murmur - GI/Abdominal GI/Abdominal exam: Present: normal bowel sounds, soft, no peritoneal signs. Absent: distended, tenderness - Extremities Exam Extremities exam: Present: warm, radial pulses palpable and symmetrical. Absent : calf tenderness, cyanotic, pedal edema - Neurological Exam Neurological exam: Present: CN II-XII intact, oriented X3, no focal deficits. Absent: pronater drift, facial droop, speech deficit - Skin Skin exam: Present: dry, intact - Patient Status Disposition: Home, Self-Care Condition: Good Functional capacity at discharge: independent ambulation Overall status at discharge: patient is progressing back to baseline - Discharge Instructions Instructions: Epilepsy (DC), Topiramate (By mouth) Follow Up With: Nery Floyd MD [Primary Care Provider] - (Please call me to follow-up appointment within 1 week) Adebayo Randall MD [Partnered Physician] - (Please call the office if you have not heard from them within 2-3 weeks for follow-up appointment) - Diet and Activity Activity: increase activity as tolerated Diet: advance to your usual diet
[2017-07-30] MEDS: Acetaminophen 325 MG TABLET PO PRN (10:04)
--- NOTE | 2017-07-30 10:29 | Neurology Progress Note ---
Date of Encounter: 07/30/17 Time of Encounter: 08:45 Assessment and Plan (1) Seizure-like activity Status: Acute Patient with history of childhood seizure activity, who has not been on anti- epileptics. Most likely etiology is behavior-related, especially considering that her mother states that she thinks that episodes can be brought on simply by talking about them. Both EEG and MRI were without significant findings. Suggest follow-up with neurology and 3 to 4 weeks for 48 hour ambulatory EEG. Topamax for headache prophylaxis. Subjective Principal diagnosis: seizure-like activity Interval history: Patient had 3 episodes of the eye-fluttering activity since yesterday. During all three, she was alert and able to converse. Patient remains somewhat somnolent, but has no other complaints. I was able to speak with her mother today, who was in the room and who suggested that these episodes can be brought on simply be her talking about them. Objective - Constitutional Vitals: Temp Pulse Resp BP Pulse Ox 98.1 F 72 16 112/73 97 07/30/17 07:11 07/30/17 07:11 07/30/17 07:11 07/30/17 07:11 07/30/17 07:11 - Other Additional findings: CONSTITUTIONAL: Well-developed and well-nourished. Comfortable and in no acute distress. CARDIOVASCULAR: Regular rate and rhythm. +S1 and S2. CHEST: Normal work of breathing. NEURO: Mental Status: Alert and oriented x3. Follows commands and answers questions. Cranial Nerves: PERRL. EOMI. Visual isaac intact. Symmetrical facial strength. Facial sensation intact. No dysarthria. Hearing intact. Soft palate elevates symmetrically. SCM and trapezius without weakness. Tongue protrudes in midline. Motor: Left - 5/5 in upper and lower extremities. Right - 5/5 in upper and lower extremities. Sensation intact. Cerebellar function intact to [id number]. Results - Laboratory Findings CBC and BMP: 07/29/17 08:29 07/29/17 04:30 Abnormal lab findings: Abnormal lab results Hct 34.6 % (35.3-44.9) L 07/29/17 04:30 MCH 25.9 pg (28.0-33.3) L 07/29/17 04:30 MCHC 31.2 g/dL (31.6-35.5) L 07/29/17 04:30 RDW 15.1 % (11.5-14.5) H 07/29/17 04:30 Chloride 109 mEq/L (98-107) H 07/29/17 04:30 Carbon Dioxide 22 mEq/L (23-29) L 07/29/17 04:30 Glucose 113 mg/dL (70-105) H 07/29/17 04:30 Globulin 3.6 g/dL (2.4-3.5) H 07/28/17 12:03 Urine Clarity Cloudy (Clear) A 07/28/17 13:42 Ur Specific [place] 1.027 (1.010-1.025) H 07/28/17 13:42 Ur Leukocyte Esterase Trace (Negative) H 07/28/17 13:42 Urine Microscopic RBC 3-5 per hpf (0-3) H 07/28/17 13:42 Urine Microscopic WBC 5-15 per hpf (0-3) H 07/28/17 13:42 Ur Squamous Epith Cells Many per lpf (None-Few) H 07/28/17 13:42 - Diagnostic Findings Additional findings: Head CT 07/28/17 12:30 IMPRESSION: No acute intracranial abnormality. D/ / Julián Calderon MD / Julián Calderon MD Interpreting Provider: Julián Calderon MD Brain MRI 07/29/17 12:42 IMPRESSION: Unremarkable MRI of the brain without and with contrast. No mesial temporal sclerosis. D/ / Ck Ko MD / Ck Ko MD Interpreting Provider: Ck Ko MD Consult Discharge Plan - Plan Instructions: Topiramate (By mouth), Epilepsy (DC) Referrals: Nery Floyd MD [Primary Care Provider] - (Please call me to follow-up appointment within 1 week) Jane Palomo MD [Partnered Physician] - 08/13/17 3:00 pm Prescriptions: Topiramate [Topamax] 25 mg PO DAILY #60 tablet
[2017-07-31 08:37] LABS: HSV Source CSF
== END 2017-07-30 10:25 | disposition home or self-care (01) ==
LOC: 3BNU 11:07 → EMEROO 11:07 → 3BNU 18:30
PROVIDERS: ADMIT Family Medicine; ATTEND Family Medicine

== ENCOUNTER 2021-03-07 22:55 | Inpatient (IN) ==
[2021-03-08 04:39] LABS: Influenza A PCR Negative (Negative); Influenza B PCR Negative (Negative); Resp. Syncytial Virus PCR Negative (Negative)
[2021-03-08 04:41] LABS: SARS-CoV-2 by PCR (In House) Negative (Negative)
[2021-03-08] MEDS ORDERED: haloperidoL 5 MG TABLET PO PRN (04:44)
[2021-03-08] MEDS ORDERED: *HR* LORazepam 1 MG TABLET PO PRN (04:44)
[2021-03-08] MEDS ORDERED: Haloperidol Lactate 5 MG/ML VIAL IM PRN (04:44)
[2021-03-08] MEDS ORDERED: *HR* LORazepam 2 MG/ML VIAL IM PRN (04:44)
[2021-03-08] MEDS ORDERED: Mag Hydrox/Al Hydrox/Simeth 30 ML UDC PO PRN (09:41)
[2021-03-08] MEDS ORDERED: MOM Conc 10 ML UD.LIQ PO PRN (09:41)
[2021-03-08] MEDS: FLUoxetine 20 MG CAPSULE PO SCH (11:16)
[2021-03-08] MEDS: Acetaminophen 325 MG TABLET PO PRN ×2 (14:50→20:32)
[2021-03-08] MEDS: traZODone 50 MG TABLET PO PRN (20:32)
[2021-03-08] MEDS: hydrOXYzine pamoate 25 MG CAPSULE PO PRN (20:32)
[2021-03-08] MEDS: ARIPiprazole 5 MG TABLET PO SCH (20:32)
[2021-03-09] MEDS: FLUoxetine 20 MG CAPSULE PO SCH (09:25)
[2021-03-09] MEDS: traZODone 50 MG TABLET PO PRN (20:43)
[2021-03-09] MEDS: ARIPiprazole 5 MG TABLET PO SCH (20:43)
[2021-03-09] MEDS: hydrOXYzine pamoate 25 MG CAPSULE PO PRN (20:44)
[2021-03-09] MEDS: Acetaminophen 325 MG TABLET PO PRN (20:44)
[2021-03-10] MEDS: FLUoxetine 20 MG CAPSULE PO SCH (08:31)
[2021-03-10] MEDS: ARIPiprazole 5 MG TABLET PO SCH (20:43)
[2021-03-10] MEDS: Acetaminophen 325 MG TABLET PO PRN (20:43)
[2021-03-10] MEDS: hydrOXYzine pamoate 25 MG CAPSULE PO PRN (20:43)
[2021-03-10] MEDS: traZODone 50 MG TABLET PO PRN (20:43)
[2021-03-11 07:49] VITALS: BP 112/73; PULSE 86; TEMP 98.6; O2SAT 99
[2021-03-11] MEDS: FLUoxetine 20 MG CAPSULE PO SCH (08:20)
== END 2021-03-11 16:15 | disposition home or self-care (01) | DRG 754 ==
LOC: EMEROOARM 22:55 → 1ANU 03-08 04:49
PROVIDERS: ADMIT Psychiatry & Neurology Psychiatry; ATTEND Psychiatry & Neurology Psychiatry

== ENCOUNTER 2021-11-09 14:24 | Inpatient (IN) ==
[2021-11-09 19:42] LABS: Influenza A PCR Negative (Negative); Influenza B PCR Negative (Negative); Resp. Syncytial Virus PCR Negative (Negative)
[2021-11-09 19:48] LABS: SARS-CoV-2 by PCR (In House) Negative (Negative)
[2021-11-09] MEDS ORDERED: haloperidoL 5 MG TABLET PO PRN (20:29)
[2021-11-09] MEDS ORDERED: Haloperidol Lactate 5 MG/ML VIAL IM PRN (20:29)
[2021-11-09] MEDS ORDERED: hydrOXYzine pamoate 25 MG CAPSULE PO PRN (20:29)
[2021-11-09] MEDS ORDERED: *HR* LORazepam 1 MG TABLET PO PRN (20:29)
[2021-11-09] MEDS ORDERED: traZODone 50 MG TABLET PO PRN (20:29)
[2021-11-09] MEDS ORDERED: *HR* LORazepam 2 MG/ML VIAL IM PRN (20:29)
[2021-11-10] MEDS: Acetaminophen 325 MG TABLET PO PRN (07:01)
[2021-11-10] MEDS ORDERED: Mag Hydrox/Al Hydrox/Simeth 30 ML UDC PO PRN (09:18)
[2021-11-10] MEDS ORDERED: MOM Conc 10 ML UD.LIQ PO PRN (09:18)
[2021-11-10] MEDS: Carbamide Peroxide 150 DROP/15 ML BOTTLE LEFT EAR SCH ×2 (10:14→20:45)
[2021-11-10] MEDS: ARIPiprazole 5 MG TABLET PO SCH (14:39)
[2021-11-10] MEDS: FLUoxetine 20 MG CAPSULE PO SCH (14:39)
[2021-11-10] MEDS: hydrOXYzine pamoate 25 MG CAPSULE PO SCH (20:45)
[2021-11-10] MEDS: Melatonin 3 MG TABLET PO SCH (20:45)
[2021-11-11] MEDS: ARIPiprazole 5 MG TABLET PO SCH (08:00)
[2021-11-11] MEDS: FLUoxetine 20 MG CAPSULE PO SCH (08:01)
[2021-11-11] MEDS: Carbamide Peroxide 150 DROP/15 ML BOTTLE LEFT EAR SCH ×2 (08:02→20:27)
[2021-11-11] MEDS: Melatonin 3 MG TABLET PO SCH (20:26)
[2021-11-11] MEDS: Acetaminophen 325 MG TABLET PO PRN (20:26)
[2021-11-11] MEDS: hydrOXYzine pamoate 25 MG CAPSULE PO SCH (20:52)
[2021-11-12] MEDS: ARIPiprazole 5 MG TABLET PO SCH (08:37)
[2021-11-12] MEDS: FLUoxetine 20 MG CAPSULE PO SCH (08:38)
[2021-11-12] MEDS: Carbamide Peroxide 150 DROP/15 ML BOTTLE LEFT EAR SCH ×2 (08:39→22:43)
[2021-11-12] MEDS: hydrOXYzine pamoate 25 MG CAPSULE PO SCH (20:15)
[2021-11-12] MEDS: Melatonin 3 MG TABLET PO SCH (20:15)
[2021-11-13] MEDS: ARIPiprazole 5 MG TABLET PO SCH (08:11)
[2021-11-13] MEDS: FLUoxetine 20 MG CAPSULE PO SCH (08:12)
[2021-11-13] MEDS: Carbamide Peroxide 150 DROP/15 ML BOTTLE LEFT EAR SCH (08:13)
[2021-11-13 09:38] VITALS: BP 117/83; PULSE 82; TEMP 97.5; O2SAT 98
== END 2021-11-13 16:55 | disposition home or self-care (01) | DRG 885 ==
LOC: EMEROOARM 14:24 → 1ANU 20:37
PROVIDERS: ADMIT Psychiatry & Neurology Psychiatry; ATTEND Psychiatry & Neurology Psychiatry